=== PATIENT | male | born 1955 | race Caucasian/White ===

== ENCOUNTER → 2016-07-25 | Outpatient (CLI) | payer OTHER ==
[~2016-07-25] MED LIST: CALC1CAP24 PO; CIPR1TAB11 PO; CYAN500T13 PO; DICL1GEL28 TOP; FLUC150T54 PO; METR-163 PO; RIFA150C PO
--- NOTE | 2016-07-25 15:12 | DIAGNOSTIC IMAGING REPORT ---
CHEST 2 VIEWS ROUTINE CLINICAL HISTORY: RLL PNEUMONIA pneumonia COMPARISON STUDY: No previous studies for comparison. FINDINGS: There are no prior studies for comparison. There is additional linear density peripheral aspect right midlung. It is possible this represent residual from prior inflammatory process. Lungs otherwise appear clear. No evidence for cardiac enlargement. Diaphragms smooth. IMPRESSION: Linear density right midlung. This may be postinflammatory, although it is recommended that a repeat chest series be obtained in several weeks. If this persists, CT exam of the chest would be indicated Electronically signed by: Juliano Torres M.D. 07/25/2016 3:11 PM Dictated Date/Time: 07/25/2016 3:09 PM
== END | disposition home or self-care (01) ==
LOC: C.RADBC 14:36
PROVIDERS: ATTEND Family Medicine
DX: J18.9 Pneumonia, unspecified organism (principal)